=== PATIENT | male | born 1975 | race Caucasian/White ===

== ENCOUNTER 2017-06-08 15:49 | Emergency (ER) | payer SELFPAY ==
[~2017-06-08] VITALS: Ht 172.7 cm; Wt 74.8 kg
--- NOTE | 2017-06-08 17:29 | NUR ---
Patient discharged to home in stable conditon. Written and verbal after care instructions given. Patient verbalizes understanding of instructions. Stressed follow up with pmd or return to ER for worsening s/s.
== END 2017-06-08 17:30 | disposition home or self-care (01) ==
LOC: ER 15:50
DX: H93.13 Tinnitus, bilateral (principal); Z88.5 Allergy status to narcotic agent
CPT/HCPCS: 70450; A4663